=== PATIENT | male | born 1970 | race Caucasian/White ===

== ENCOUNTER → 2020-03-03 | Outpatient (CLI) | payer OTHER ==
[~2020-03-03] VITALS: Ht 190.5 cm; Wt 126.0 kg
[~2020-03-03] MED LIST: RT ADVAIR HFA 412 GM IH; VENTOLIN0.09 MG IH
[2020-03-03 09:09] VITALS: BP 155/92; PULSE 68
[2020-03-03 10:25] VITALS: BP 169/96; PULSE 58
== END ==
LOC: COL.RAD 08:58
DX: E04.1 Nontoxic single thyroid nodule (principal)